=== PATIENT | female | born 1985 | race African-American/Black ===

== ENCOUNTER 2017-05-24 00:56 | Inpatient (IN) | payer OTHER ==
[~2017-05-24] VITALS: Ht 157.5 cm; Wt 87.1 kg
[~2017-05-24 00:56] MED LIST: CYCLOBENZAPRINE10 M1 PO; MOBIC15 M1 PO; VITAFOL ULTRA1 EACH PO
--- NOTE | 2017-05-24 10:41 | History & Physical Pre-Op ---
General Information and HPI MD Statement: I have seen and personally examined JAONIE BALLESTEROS and documented this H&P. The patient is a 31 year old F who presented with a patient stated chief complaint of [] patient has had a urinary tract infection. Patient now is 5 cm 90% vertex contractions every 9 minutes. Patient denies rupture membranes fever. She's had adequate care complicated by some social issues regarding the FOB.. History of Present Illness: 31-year-old 1 para 0 at 40-2/7 weeks gestation presents complaining of back pain with a recent UTI. Patient slept overnight with morphine. On she now denies contractions feels better she is 5 cm we have discussed options of going home versus augmentation with Pitocin patient has opted for augmentation with Pitocin pain medications have been reviewed. 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
[2017-05-24 11:50] VITALS: BP 113/59
[2017-05-24 12:27] LABS: ABSOLUTE BASOPHIL COUNT 0 /CUMM (0.0-0.2); ABSOLUTE EOSINOPHIL COUNT 0 /CUMM (0.0-0.7); ABSOLUTE GRANULOCYTE CT 4.5 /CUMM (1.4-6.5); ABSOLUTE LYMPH COUNT 0.8 /CUMM (1.2-3.4); ABSOLUTE MONOCYTE COUNT 0.6 /CUMM (0.10-0.60); BASOPHIL % 0.1 % (0.0-2.0); EOSINOPHIL % 0.3 % (0-5); GRANULOCYTE % 76.5 % (42.2-75.2); HEMATOCRIT 37.2 % (37-47); MEAN CORPUSCULAR HGB 27.6 PG (27.0-31.0); MEAN CORPUSCULAR HGB CONC 32.8 G/DL (33.0-37.0); MEAN PLATELET VOLUME 9.7 FL (7.4-10.4); PLATELET COUNT 170 /CUMM (130-400); RBC DISTRIBUTION WIDTH 16.8 % (11.5-14.5); RED BLOOD CELL CT 4.42 /CUMM (4.20-5.40); WHITE BLOOD CELL COUNT 5.9 /CUMM (4.8-10.8)
--- NOTE | 2017-05-24 17:53 | PN- Obstetrical ---
Subjective Subjective: NO COMPLAINTS EPIDURAL Objective Last 24 Hrs of Vital Signs/I&O Vital Signs Date Time Temp Pulse Resp B/P B/P Pulse O2 O2 Flow FiO2 Mean Ox Delivery Rate 05/24 1150 113/59 Intake & Output 05/24 1600 05/24 0800 05/24 0000 Intake Total Output Total Balance Patient 192 lb Weight Physical Exam: PE THIN BF IN NAD ABD SOFT [id number] EXT -EDEMA Obstetric Exam Dilation (cm): -8 Effacement (%): 100 Station: 0 Membranes: AROM Fluid: clear Multiple Gestation? No Contractions: Q 3MIN Assessment/Plan Assessment/Plan ASSESS TERM PLAN CONT PITOCIN
--- NOTE | 2017-05-24 21:57 | Labor & Delivery Summary ---
Delivery Summary Vaginal Delivery: Vaginal: vertex : : vacuum Placenta: Placenta: spontanteous, normal, 3 vessel Anesthesia: moderate sedation, block Baby's Weight: 8 5 Apgars - 1 Min: 9 Apgars - 5 Min: 9 Additional Comments: Vacuum-assisted vaginal delivery secondary to combative behavior poor maternal effort from plus 1RO a over second-degree laceration suctioned with bulb total necking after delivery of vertex adduction of legs for delivery of the anterior shoulder. Center by continuous cord traction intact. Second degree laceration repaired under nitrous oxide rectal no sutures
[2017-05-25 08:08] LABS: ABSOLUTE BASOPHIL COUNT 0 /CUMM (0.0-0.2); ABSOLUTE EOSINOPHIL COUNT 0 /CUMM (0.0-0.7); ABSOLUTE GRANULOCYTE CT 9.6 /CUMM (1.4-6.5); ABSOLUTE LYMPH COUNT 0.6 /CUMM (1.2-3.4); ABSOLUTE MONOCYTE COUNT 1.2 /CUMM (0.10-0.60); BASOPHIL % 0.1 % (0.0-2.0); MEAN PLATELET VOLUME 9.5 FL (7.4-10.4)
[2017-05-25 08:22] LABS: EOSINOPHIL % 0 % (0-5); MEAN CORPUSCULAR HGB 27.5 PG (27.0-31.0); MEAN CORPUSCULAR HGB CONC 32.3 G/DL (33.0-37.0); MEAN CORPUSCULAR VOLUME 85.2 FL (81.0-99.0); RBC DISTRIBUTION WIDTH 16.9 % (11.5-14.5)
[2017-05-25 08:27] LABS: HEMATOCRIT 30.6 % (37-47); WHITE BLOOD CELL COUNT 11.4 /CUMM (4.8-10.8)
[2017-05-25 08:46] LABS: GRANULOCYTE % 84.3 % (42.2-75.2); PLATELET COUNT 171 /CUMM (130-400)
[2017-05-25] MEDS ORDERED: IBUPROFEN800 M1 PO (09:08)
--- NOTE | 2017-05-25 09:10 | PN- Post Delivery/GYN ---
Subjective Subjective: No complaints Objective Last 24 Hrs of Vital Signs/I&O Vital Signs Date Time Temp Pulse Resp B/P B/P Pulse O2 O2 Flow FiO2 Mean Ox Delivery Rate 05/24 1930 101.3 05/24 1150 113/59 Physical Exam: Well-built black female HEENT anicteric Abdomen soft Fundus firm nontender Lochia minimal Extremities negative edema negative Homans Assessment/Plan Assessment/Plan Assessment is status post vacuum assisted vaginal delivery Plan I continue antibiotics check CB C advanced diet
== END 2017-05-26 11:59 | DRG 560 ==
LOC: CBCO 00:56 → GNO 02:15
PROVIDERS: Specialist
PROC: 0KQM0ZZ Repair Perineum Muscle, Open Approach (ICD-10-PCS; principal; 2017-05-24)
PROC: 10D07Z6 Extraction of Products of Conception, Vacuum, Via Natural or Artificial Opening (ICD-10-PCS; principal; 2017-05-24)
DX: O70.1 Second degree perineal laceration during delivery (principal); Z3A.40 40 weeks gestation of pregnancy; Z37.0 Single live birth
CPT/HCPCS: 87070; 87075; 87205; GNOS; 36415; 81001; 84112; 87086; 87389; 96372; G0378; G0463; J0290; J7120